=== PATIENT | female | born 1970 | race Hispanic/Latino ===

== ENCOUNTER 2025-04-09 15:49 | Emergency (ER) | payer BC ==
[~2025-04-09] VITALS: Ht 152.4 cm; Wt 72.6 kg
--- NOTE | 2025-04-09 16:08 | ERN ---
ED Note History of Present Illness Stated Complaint: CONGESTION, CHEST PRESSURE Chief Complaint: Congestion Time Seen by MD: 15:54 Dictation: PATIENT IS A 54-YEAR-OLD FEMALE COMING IN TODAY WITH LEFT BREAST AND CHEST PAIN PRESSURE SHE HAS HAD ONSET WAS WEDNESDAY. NO FEVER NO CHILLS NO NAUSEA VOMITING. SHE STATES THE PAIN IS ACHY AND POINTS TO HER BREAST HOWEVER SHE SAID SHE IS CONCERNED THAT MAYBE HEART. SHE STATES SHE SAW HER PRIMARY CARE DOCTOR TODAY AND THEY ADVISED HER THAT THEY CAN NO DO A CARDIAC WORKUP WITH THE CLINIC AND TO COME TO THE EMERGENCY ROOM. SHE DENIES ANY HISTORY OF CAD STENTS BYPASSES. 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 Allergies: Coded Allergies: iodine (Unverified Allergy, Unknown, 04/09/25) Past Medical History Past Medical History: Diabetes-Type II, Other Additional Past Medical Hx: THYROID Surgical History: Cholecystectomy, BTL, History: Not Applicable RN Note Reviewed/Agreed w/PFSH: Yes Review of System Dictation CONSTITUTIONAL: NEGATIVE EXCEPT FOR HPI HEAD/FACE: NEGATIVE EXCEPT FOR HPI EENT: NEGATIVE EXCEPT FOR HPI RESPIRATORY: NEGATIVE EXCEPT FOR HPI LEFT CHEST/BREASTS PAIN GASTROINTESTINAL/ABDOMINAL: NEGATIVE EXCEPT FOR HPI GENITOURINARY: NEGATIVE EXCEPT FOR HPI MUSCULOSKELETAL: NEGATIVE EXCEPT FOR HPI INTEGUMENTARY: NEGATIVE EXCEPT FOR HPI NEUROLOGICAL/PSYCH: NEGATIVE EXCEPT FOR HPI HEMATOLOGIC/LYMPHATIC: NEGATIVE EXCEPT FOR HPI ALL SYSTEMS NEGATIVE, EXCEPT NOTED ABOVE. 13 POINT REVIEW OF SYSTEMS ASSESSED AND ALL NEGATIVE EXCEPT FOR ABOVE. Initial Vital Sign VS Vital Signs Date Time Temp Pulse Resp B/P (MAP) Pulse Ox O2 Delivery O2 Flow Rate FiO2 04/09/25 15:52 98.2 87 16 113/57 98 Room Air 0 Physical Exam Dictation VITAL SIGNS REVIEWED GENERAL APPEARANCE: ALERT, ORIENTED X 3, NO ACUTE DISTRESS, WELL DEVELOPED, NOURISHED. ANXIOUS HEAD AND FACE: NON-TRAUMATIC. EYES: PERRL, PINK CONJUNCTIVAS, EYELID NO TRAUMA, ANTERIOR CHAMBER WITH ARCUS SENILIS. EARS: PINNAS INTACT AND NO SIGNS OF TRAUMA OR ERYTHEMA EAR CANALS CLEAR AND NO DISCHARGE TM NO ERYTHEMA NOSE: NO DISCHARGE, NO BLEEDING. OROPHARYNX: MOUTH NORMAL, TONGUE PINK, PHARYNX CLEAR,NO ERYTHEMA, TONSILS NO EXUDATES, NO ABSCESSES NOTED, MUCOUS MEMBRANE MOIST NECK: SUPPLE, NON-TENDER, NO THYROMEGALY, NO MASSES, NO JVD, NO BRUITS BREAST:DEFERRED CHEST:NO TENDERNESS, NO CREPITUS, NO PARADOXICAL MOVEMENT, NO RETRACTIONS LUNGS:CLEAR, WELL-VENTILATED, SYMMETRIC, NO RALES, NO WHEEZING, NO RHONCHI, NO STRIDOR, GOOD BREATH SOUNDS BILATERALLY HEART: REGULAR RATE, REGULAR RHYTHM, NO MURMUR, NO GALLOPS VASCULAR: NO PERIPHERAL EDEMA, ABDOMEN: SOFT, POSITIVE BOWEL SOUNDS, NONDISTENDED, NO GUARDING, NONTENDER, NO REBOUND, NO MASSES NO HEPATOMEGALY, NO SPLENOMEGALY, NO GONZALEZ'S SIGN, NO HERNIAS. RECTAL: DEFERRED GENITAL: DEFERRED NEUROLOGICAL: NORMAL SPEECH, MOTOR FUNCTION INTACT, SENSORY FUNCTION INTACT MUSCULOSKELETAL: NECK NONTENDER, FULL RANGE OF MOTION, BACK NONTENDER, FULL RANGE OF MOTION, EXTREMITIES: NONTENDER, FULL RANGE OF MOTION SKIN: COLOR PINK, DRY, NO TURGOR, NO RASH, NO LACERATIONS, NO ABRASIONS, NO CONTUSIONS. LYMPHATIC: DEFERRED Results (Laboratory/Radiology) Laboratory/Radiology Laboratory Tests Test 04/09/25 16:22 04/09/25 20:00 White Blood Count 7.8 K/uL (4.8-10.8) Red Blood Count 5.59 MIL/uL (4.00-5.50) H Hemoglobin 15.4 g/dL (12.0-16.0) Hematocrit 47.2 % (36-48) Mean Corpuscular Volume 84.4 fL (79-99) Mean Corpuscular Hemoglobin 27.5 pg (27.0-33.0) Mean Corpuscular Hemoglobin Concent 32.6 g/dL (32.0-36.0) Red Cell Distribution Width 13.2 % (11.0-15.5) Platelet Count 267 K/uL (130-400) Mean Platelet Volume 9.8 fL (7.5-10.5) Immature Granulocyte % (Auto) 0.3 % (0-1) Neutrophils (%) (Auto) 53.1 % (40.0-77.0) Lymphocytes (%) (Auto) 40.4 % (21.0-51.0) Monocytes (%) (Auto) 5.4 % (3.0-13.0) Eosinophils (%) (Auto) 0.4 % (0.0-8.0) Basophils (%) (Auto) 0.4 % (0.0-5.0) Neutrophils # (Auto) 4.1 K/uL (1.8-7.7) Lymphocytes # (Auto) 3.1 K/uL (1.0-4.8) Monocytes # (Auto) 0.4 K/uL (0.1-1.0) Eosinophils # (Auto) 0.03 K/uL (0.00-0.70) Basophils # (Auto) 0.03 K/uL (0.00-0.20) Absolute Immature Granulocyte (auto 0.02 K/uL (0-1) Nucleated Red Blood Cells 0.0 % (0.0-0.19) Sodium Level 138 mmol/L (136-145) Potassium Level 4.1 mmol/L (3.5-5.1) Chloride Level 100 mmol/L (101-111) L Carbon Dioxide Level 32 mmol/L (21-32) Blood Urea Nitrogen 13 mg/dL (7-18) Creatinine 0.6 mg/dL (0.5-1.0) Glomerular Filtration Rate Calc 107 mL/min (>90) Random Glucose 85 mg/dL (70-105) Total Calcium 9.3 mg/dL (8.5-10.1) Magnesium Level 2.40 mg/dL (1.80-2.40) Troponin I High Sensitivity 12 ng/L (4-50) SARS-CoV-2 Antigen (Rapid) PRESUMPTIVE NEGATIVE X-ray negative Labs Reviewed?: Yes EKG: (+) NSR EKG Comment: EKG NORMAL SINUS RHYTHM/HEART RATE 83/AXIS NORMAL/NO ECTOPY ED Course ED Course Orders Procedure Category Date Status Time Covid19 (Sars Antigen LAB 04/09/25 Complete Rapid) 16:06 Cbc With Differential LAB 04/09/25 Complete 16:06 Chest 1vw RAD 04/09/25 Resulted 16:06 12 Lead Ekg Tracing- EKG 04/09/25 Logged Technical 16:06 Magnesium LAB 04/09/25 Complete 16:06 Troponin I High LAB 04/09/25 Complete Sensitivity 16:06 Basic Metabolic Panel LAB 04/09/25 Complete 16:06 Vital Signs Date Time Temp Pulse Resp B/P (MAP) Pulse Ox O2 Delivery O2 Flow Rate FiO2 04/09/25 15:52 98.2 87 16 113/57 98 Room Air 0 2105/spoke with patient and her daughter at length regarding clinical findings they are aware EKGs normal troponins normal there was no electrolyte imbalance no dehydration no hypomagnesemia no pneumonia/bronchitis. Diagnosis we will be atypical chest pain and palpitations Patient told to see her primary care doctor tomorrow She currently states she is not having any palpitations or pain HEART Score Response (Comments) Value History: Low suspicion (0) 0 Age: 45-65yrs (+1) 1 Risk Factors: 1-2 risk factors (+1) 1 Initial Troponin: Normal limit (0) 0 Total 2 Medical Decision Making MDM MDM: Differential diagnosis: ACS/AMI/electrolyte imbalance- dehydration/hypomagnesemia/pneumonia/bronchitis Rationale: Tests considered and ordered secondary to shared decision making include:/SARs COVID Previous outside records reviewed: Old ER visits. Swabs/EKG/labs Risk of complication and/or morbidity or mortality of patient management: None Medications-Per medication reconciliation Need for hospitalization: Patient does not meet criteria for hospitalization. No Need for emergency major/minor surgery: No There are no social concerns with this patient. Prescription drug management none Prescriptions will include symptomatic care Patient's prior external medical records from other ER visits were reviewed by me as indicated. Prior testing and results from previous visits were reviewed. Prior tests were taken into account with medical decision making and resource utilization, independent historian/historians were used to obtain complete medical history. I independently interpreted the test that were performed, results were reviewed by me and considered findings on radiology if ordered. Medical management and examination interpretation discussions were had by me with other qualified healthcare professionals as indicated for the patient's care. DX & DISP Disposition: Discharge Departure Impression: Primary Impression: Atypical chest pain Additional Impression: Palpitations Condition: Stable Additional Instructions: Follow-up with primary care provider in 1 to 2 days. Take medications as directed here in the emergency room. Okay to continue home medications unless otherwise discussed during your visit in the emergency room today. Return to your nearest emergency room if symptoms worsen or if there is no improvement. Call 911 if you need immediate assistance. Take Tylenol or Motrin [id number] as needed and if no contraindications are present. Increase oral hydration. A wound culture or urine culture was ordered here in the emergency room department please follow-up with primary care provider and advise them to get repeat ports from our facility. If you had any Misael wrap/splints that were applied here, please do not remove them until you see your primary care or specialty. Diet and activity as tolerated. Follow up with the your primary care doctor tomorrow for management Time of Disposition: 21:08 I have reviewed the case, and I agree with, Diagnosis and Plan TWILA ROJAS NP Apr 09, 2025 16:08
[2025-04-09 16:27] LABS: IMMATURE GRANULOCYTE ABSOLUTE 0.02 K/uL (0-1); NUCLEATED RED BLOOD CELLS 0.0 % (0.0-0.19); PLATELET COUNT (AUTO) 267 K/uL (130-400); RED BLOOD CELL COUNT(AUTO) 5.59 MIL/uL (4.00-5.50); RED CELL DISTRIBUTION WIDTH 13.2 % (11.0-15.5); WHITE BLOOD COUNT (AUTO) 7.8 K/uL (4.8-10.8)
[2025-04-09 16:37] LABS: CREATININE 0.6 mg/dL (0.5-1.0); GLOMERULAR FILTR. RATE CALC 107.0 mL/min (>90); GLUCOSE,RANDOM 85.0 mg/dL (70-105); SODIUM SERUM 138.0 mmol/L (136-145); UREA NITROGEN, BLOOD 13.0 mg/dL (7-18)
--- NOTE | 2025-04-09 17:43 | HMCIMG ---
CLINICAL INFORMATION Chest pain COMPARISON None. TECHNIQUE Frontal view chest. FINDINGS Lines and tubes: None Lungs: Clear. Pleura: Unremarkable. No effusion or pneumothorax. Cardiomediastinal Silhouette: Unremarkable. Bones: Normal for age. Soft Tissues: Normal. IMPRESSION No acute cardiopulmonary findings. /[place]
[2025-04-09 21:06] VITALS: BP 116/62; PULSE 82; RESP 20; TEMP 98.6; O2SAT 97
--- NOTE | 2025-04-10 06:43 | EKG ---
[facility] Test Date: 2025-04-09 Test Time: 17:04:36 Pat Name: REA FLORES Department: [facility] Room: Gender: F Underwriting Support Specialist: tali : 1970 Requested By: TWILA ROJAS Order Number: [id number] Reading MD: Israel Quinones Measurements Intervals [place] Rate: 83 P: 49 OK: 154 QRS: 76 QRSD: 99 T: 17 QT: 361 QTc: 423 Interpretive Statements Sinus rhythm No previous ECG available for comparison Electronically Signed On 04-10-2025 09:54:06 CDT by Israel Quinones Please click the below link to view image of tracing.
== END 2025-04-09 21:21 | disposition home or self-care (01) ==
LOC: EDH 15:49
DX: R07.89 Other chest pain (principal); R00.2 Palpitations; E11.9 Type 2 diabetes mellitus without complications; Z88.8 Allergy status to other drugs, medicaments and biological substances; Z90.49 Acquired absence of other specified parts of digestive tract; Z98.51 Tubal ligation status; Z20.822 Contact with and (suspected) exposure to COVID-19
CPT/HCPCS: 36415; 71045; 80048; 83735; 84484; 85025; 87426; 93005; 99284